=== PATIENT | female | born 1975 | race Two or more races ===

== ENCOUNTER 2019-02-23 16:25 | Emergency (ER) | payer SELFPAY ==
[~2019-02-23] VITALS: Ht 162.6 cm; Wt 69.9 kg
--- NOTE | 2019-02-23 16:30 | NUR ---
BIB FOR NAUSEA, VOMITING AND DIZZINESS. ALSO C/O ABDOMINAL PAIN SINCE THIS AFTERNOON. TO ER BED 11, HOOKED TO MONITOR, PATIENT AOx4, BREATHING EVEN AND UNLABORED, CHANGED TO HOSP [facility], AWAITING MD GARRETT.
--- NOTE | 2019-02-23 16:39 | NUR ---
DR CLARKE AT BEDSIDE
[2019-02-23] MEDS ORDERED: MORPHINE SULFATE INJ 2 MG/ML DISP.SYRIN ONE (16:50)
[2019-02-23] MEDS ORDERED: PANTOPRAZOLE 40 MG VIAL ONE (16:50)
[2019-02-23] MEDS ORDERED: ONDANSETRON HCL/PF 4 MG/2 ML VIAL ONE (16:50)
[2019-02-23 16:52] LABS: BASOPHILS # (AUTO) 0.1 /CMM (0.0-0.2); BASOPHILS % (AUTO) 1.3 % (0.0-2.0); EOSINOPHILS % (AUTO) 2.6 % (0.0-6.0); HEMATOCRIT 47 % (33-45); HEMOGLOBIN 15.9 g/dL (11.5-14.8); LYMPHOCYTES # (AUTO) 2.3 /CMM (0.8-4.8); LYMPHOCYTES % (AUTO) 26.6 % (20.0-44.0); MEAN CORPUSCULAR HGB CONC 34 g/dl (31.0-36.0); MEAN CORPUSCULAR VOLUME 91 fL (82-100); MONOCYTES # (AUTO) 0.7 /CMM (0.1-1.30); MONOCYTES % (AUTO) 8.5 % (2.0-12.0); NEUTROPHILS # (AUTO) 5.2 /CMM (1.8-8.9); PLATELET COUNT (AUTO) 326 /CMM (150-450); RED BLOOD CELL COUNT(AUTO) 5.15 MIL/uL (4.0-5.2); WHITE BLOOD COUNT (AUTO) 8.5 K/uL (4.3-11.0)
[2019-02-23 16:54] LABS: APPEARANCE,URINE Slightly Cloudy (CLEAR); BILIRUBIN,URINE Negative (NEGATIVE); BLOOD, URINE Small Ery/uL (NEGATIVE); COLOR,URINE Dark (YELLOW); KETONES,URINE Negative (NEGATIVE); LEUKOCYTE ESTERASE ,URINE Negative (NEGATIVE); NITRITE, URINE Negative (NEGATIVE); PROTEIN,URINE Negative (NEGATIVE); UGLUCOSE Negative (NEGATIVE); UROBILINOGEN,URINE 0.2 EU/dL (0.2)
[2019-02-23] MEDS: MORPHINE SULFATE INJ 2 MG/ML DISP.SYRIN IV ONE (16:57)
[2019-02-23] MEDS: PANTOPRAZOLE 40 MG VIAL IV ONE (16:57)
[2019-02-23] MEDS: IV NS 0.9% 1,000 ML BAG IV ONE (16:57)
[2019-02-23] MEDS: ONDANSETRON HCL/PF 4 MG/2 ML VIAL IVP ONE (16:58)
[2019-02-23 17:00] LABS: CALCIUM, SERUM 9.8 mg/dL (8.5-10.1); CREATININE 0.9 mg/dL (0.6-1.3); POTASSIUM 3.5 mmol/L (3.5-5.1)
[2019-02-23 17:12] LABS: ALBUMIN 4.1 g/dL (3.4-5.0); BILIRUBIN,DIRECT 0.1 mg/dL (0.0-0.2); BILIRUBIN,TOTAL 0.3 mg/dL (0.2-1.0)
[2019-02-23 17:28] LABS: BACTERIA,URINE Moderate /HPF (None Seen); RBC,URINE 0-2 /HPF (0-2); SQUAMOUS EPITHELIAL CELL,UR Moderate /HPF (None Seen); WBC,URINE 0-2 /HPF (0-3)
--- NOTE | 2019-02-23 18:47 | NUR ---
ivIV removed. Catheter intact and site benign. Pressure and 4x4 applied to site. No bleeding noted.Patient discharged to home in stable condition. Written and verbal after care instructions given. Patient verbalizes understanding of instruction.
[2019-02-23 19:10] VITALS: BP 115/59
== END 2019-02-23 18:50 | disposition home or self-care (01) ==
LOC: ER 16:26
DX: R10.13 Epigastric pain (principal); R10.11 Right upper quadrant pain; R11.2 Nausea with vomiting, unspecified
CPT/HCPCS: 36415; 76705; 80048; 80076; 81001; 83690; 84702; 85025; 87086; 96361; 96374; 96375; 99284; C9113; J2270; J2405; J7030; 81000-TC

== ENCOUNTER 2019-02-25 21:07 | Emergency (ER) | payer MEDICAID ==
[~2019-02-25] VITALS: Ht 165.1 cm; Wt 69.4 kg
--- NOTE | 2019-02-25 21:39 | NUR ---
BIBS. C/O "HAVING EPIGASTRIC PAIN, NAUSEA/VOMITING X 2 DAYS, WAS HERE RECENTLY FOR SAME REASON" -SOB AOX4. VSS. AMBULATORY
[2019-02-25] MEDS ORDERED: KETOROLAC TROMETHAMINE INJ 30 MG/ML VIAL ONE (21:53)
[2019-02-25] MEDS ORDERED: PANTOPRAZOLE 40 MG VIAL ONE (21:54)
[2019-02-25] MEDS ORDERED: ONDANSETRON HCL/PF 4 MG/2 ML VIAL ONE (21:54)
[2019-02-25] MEDS ORDERED: PANTOPRAZOLE 40 MG VIAL IV ONE (22:00)
[2019-02-25] MEDS ORDERED: IV NS 0.9% 1,000 ML BAG IV ONE (22:00)
[2019-02-25] MEDS ORDERED: ONDANSETRON HCL/PF 4 MG/2 ML VIAL IVP ONE (22:00)
[2019-02-25] MEDS ORDERED: KETOROLAC TROMETHAMINE INJ 30 MG/ML VIAL IV ONE (22:00)
[2019-02-25 22:02] LABS: BASOPHILS # (AUTO) 0.1 /CMM (0.0-0.2); BASOPHILS % (AUTO) 0.9 % (0.0-2.0); EOSINOPHILS % (AUTO) 4.4 % (0.0-6.0); HEMATOCRIT 43 % (33-45); HEMOGLOBIN 14.4 g/dL (11.5-14.8); LYMPHOCYTES # (AUTO) 1.6 /CMM (0.8-4.8); LYMPHOCYTES % (AUTO) 25.9 % (20.0-44.0); MEAN CORPUSCULAR HGB CONC 34 g/dl (31.0-36.0); MEAN CORPUSCULAR VOLUME 91 fL (82-100); MONOCYTES # (AUTO) 0.6 /CMM (0.1-1.30); NEUTROPHILS # (AUTO) 3.7 /CMM (1.8-8.9); NEUTROPHILS % (AUTO) 59.8 % (43.0-81.0); PLATELET COUNT (AUTO) 267 /CMM (150-450); RED BLOOD CELL COUNT(AUTO) 4.68 MIL/uL (4.0-5.2); WHITE BLOOD COUNT (AUTO) 6.3 K/uL (4.3-11.0)
[2019-02-25 22:22] LABS: CALCIUM, SERUM 9.1 mg/dL (8.5-10.1); CREATININE 0.9 mg/dL (0.6-1.3); POTASSIUM 3.8 mmol/L (3.5-5.1)
[2019-02-25 22:28] LABS: ALBUMIN 3.8 g/dL (3.4-5.0); BILIRUBIN,DIRECT 0.1 mg/dL (0.0-0.2); BILIRUBIN,TOTAL 0.3 mg/dL (0.2-1.0); TOTAL PROTEIN, SERUM 7.2 g/dL (6.4-8.2)
--- NOTE | 2019-02-25 22:29 | NUR ---
PT NOTED SLEEPING IN BED. -NV AT THIS TIME. -ABD PAIN NOTED. VSS
[2019-02-25 23:48] VITALS: BP 127/83
== END 2019-02-25 23:48 | disposition home or self-care (01) ==
LOC: ER 21:09
DX: K29.70 Gastritis, unspecified, without bleeding (principal)
CPT/HCPCS: 36415; 80048; 80076; 83690; 85025; 96361; 96374; 96375; 99283; C9113; J1885; J2405; J7030